=== PATIENT | female | born 1950 | race Caucasian/White ===

== ENCOUNTER 2022-06-20 17:39 | Emergency (ER) | payer OTHER, BC ==
[2022-06-20 18:05] VITALS: BP 116/82; PULSE 64; RESP 18; TEMP 98.1; BMI 20.3
== END 2022-06-20 21:46 | disposition home or self-care (01) ==
LOC: FER 17:39
DX: S93.432A Sprain of tibiofibular ligament of left ankle, initial encounter (principal); S09.90XA Unspecified injury of head, initial encounter; W18.30XA Fall on same level, unspecified, initial encounter; X50.0XXA Overexertion from strenuous movement or load, initial encounter
CPT/HCPCS: 70450-TC; 73610-TC-LT-FY; 99284-25